=== PATIENT | female | born 1960 | race Caucasian/White ===

== ENCOUNTER → 2022-04-20 | Outpatient (CLI) | payer OTHER ==
[~2022-04-20] MED LIST: ACETAMINOOPHEN-1 TAB PO; CATAFLAM50 MG PO; CIPRO500 MG PO; TRIPLE ANTIBIOT15 GM TP
== END | disposition home or self-care (01) ==
LOC: NUCLEAR 09:38
PROVIDERS: ATTEND Internal Medicine
DX: I65.9 Occlusion and stenosis of unspecified precerebral artery (principal)

== ENCOUNTER 2025-01-05 07:51 | Outpatient (CLI) | payer OTHER | END 2025-01-05 08:13 | disposition home or self-care (01) | LOC: TOM 07:51 | PROVIDERS: ATTEND Internal Medicine Gastroenterology | DX: C18.9 Malignant neoplasm of colon, unspecified (principal); K57.92 Diverticulitis of intestine, part unspecified, without perforation or abscess without bleeding; K59.00 Constipation, unspecified; R19.5 Other fecal abnormalities ==